=== PATIENT | male | born 1990 | race Two or more races ===

== ENCOUNTER 2023-06-26 07:49 | Inpatient (IN) | payer MEDICAID ==
[~2023-06-26] VITALS: Ht 175.3 cm; Wt 75.0 kg
[2023-06-26] MEDS ORDERED: ketorolac trometh. 30mg/ml inj. IV STA (08:03)
[2023-06-26] MEDS ORDERED: acetaminophen 325mg tablet PO STA (08:03)
[2023-06-26] MEDS ORDERED: morphine 2 MG/ML inj. syringe IV STA ×2 (08:03→08:27)
[2023-06-26] MEDS ORDERED: ondansetron/PF 4mg/2ml inj IV ONE (08:05)
[2023-06-26] MEDS ORDERED: normal saline 1000ml 1,000 ML IV ONE (08:05)
--- NOTE | 2023-06-26 08:14 | NUR ---
pt refused to allow tech to do EKG.
[2023-06-26] MEDS ORDERED: ketorolac tromethamine 15mg/ml inj. IV STA ×2 (08:28→08:31)
[2023-06-26] MEDS ORDERED: BUPIVAcaine 0.25% w/Epi /PF 30ml vial SQ STA (08:29)
[2023-06-26 08:40] LABS: BASOPHILS # (AUTO) 0.1 X10'3 (0-0.2); BASOPHILS % (AUTO) 0.6 % (0-1); EOSINOPHILS # (AUTO) 0.4 X10'3 (0-0.9); EOSINOPHILS % (AUTO) 2.2 % (0-6); HEMATOCRIT 38.7 % (42.0-52.0); HEMOGLOBIN 12.8 g/dl (14.0-17.9); LYMPHOCYTES # (AUTO) 1.8 X10'3 (1.1-4.8); LYMPHOCYTES % (AUTO) 10.9 % (21-51); MEAN CORPUSCULAR HEMOGLOBIN 29.9 PG (27.0-31.0); MEAN CORPUSCULAR VOLUME 90.4 FL (78-98); MEAN PLATELET VOLUME 6.5 FL (7.4-10.4); MONOCYTES # (AUTO) 1.5 X10'3 (0-0.9); MONOCYTES % (AUTO) 9.5 % (2-12); NEUTROPHILS # (AUTO) 12.6 X10'3 (1.8-7.7); NEUTROPHILS % (AUTO) 76.8 % (42-75); PLATELET COUNT 390 X10'3 (140-440); RED BLOOD COUNT 4.28 X10'6 (4.70-6.10); RED CELL DISTRIBUTION WIDTH 13.3 % (11.5-14.5); WHITE BLOOD COUNT 16.4 X10'3 (4.5-11.0)
[2023-06-26] MEDS ORDERED: piperacillin/tazo 3.375gm/50ml 50 ML IV ONE (08:55)
[2023-06-26] MEDS ORDERED: vancomycin 1,750 MG in NS 350ml IV soln IV ONE (09:00)
[2023-06-26] MEDS ORDERED: BUPIVAcaine 0.5% W/EPI /PF 10ml vial IJ STA (09:01)
[2023-06-26 09:07] LABS: ALANINE AMINOTRANSFERASE 34 U/L (12-78); ALBUMIN 2.7 G/DL (3.4-5.0); ALBUMIN/GLOBULIN RATIO 0.6 (1.1-1.5); ALKALINE PHOSPHATASE 84 IU/L (46-116); ANION GAP 6 (8-16); ASPARTATE AMINO TRANSFERASE 19 U/L (10-37); BILIRUBIN,TOTAL 0.5 MG/DL (0.1-1.0); BLOOD UREA NITROGEN 7 MG/DL (7-18); BUN/CREATININE RATIO 7.5 (10.0-20.0); CALCIUM 8.4 MG/DL (8.5-10.1); CHLORIDE 100 MMOL/L (99-107); CREATININE 0.93 MG/DL (0.60-1.10); GLUCOSE 114 MG/DL (70-104); MAGNESIUM 1.9 MG/DL (1.5-2.4); POTASSIUM 3.7 MMOL/L (3.5-5.1); SODIUM 135 MMOL/L (135-145); TOTAL PROTEIN 7.5 G/DL (6.4-8.2); eCRCL 113 ML/MIN; eGFR > 90 ML/MIN
--- NOTE | 2023-06-26 09:13 | NUR ---
attempt ekg a second time, pt still refusing at this time.
[2023-06-26] MEDS ORDERED: ondansetron/PF 4mg/2ml inj IV PRN ×2 (10:00→16:40)
[2023-06-26] MEDS ORDERED: potassium Cl 20 mEq SR tablet PO PRN ×2 (10:00)
[2023-06-26] MEDS ORDERED: magnesium hydroxide 30ml (MOM) UD suspension PO PRN (10:00)
[2023-06-26] MEDS: dextrose 5%-1/2 normal saline 1,000 ML IV SCH ×2 (10:00→20:14)
[2023-06-26] MEDS ORDERED: morphine 2 MG/ML inj. syringe IV PRN (10:00)
[2023-06-26] MEDS ORDERED: magnesium 4gm in 100ml NS 100 ML IV PRN (10:00)
[2023-06-26] MEDS ORDERED: acetaminophen 325mg tablet PO PRN (10:00)
[2023-06-26] MEDS ORDERED: mag hydrox/Alum hydrox/simeth 30ml oral suspension PO PRN (10:00)
[2023-06-26] MEDS ORDERED: magnesium 2GM in 50ml NS 50 ML IV PRN (10:00)
[2023-06-26] MEDS ORDERED: magnesium Cl slow-release 64mg tablet PO PRN (10:00)
[2023-06-26] MEDS ORDERED: potassium Cl 40MEQ/1/2NS 520ml 520 ML IV PRN (10:00)
[2023-06-26 10:48] LABS: MAGNESIUM 1.9 MG/DL (1.5-2.4); POTASSIUM 3.6 MMOL/L (3.5-5.1)
[2023-06-26] MEDS ORDERED: normal saline 1000ml 1,000 ML IV SCH ×2 (10:50→10:55)
--- NOTE | 2023-06-26 14:56 | NUR ---
SECURITY CALLED 3 TIMES TODAY FOR OUTAYLOR. TIME NOW 5432
--- NOTE | 2023-06-26 15:22 | NUR ---
SECURITY CALLED AGAIN FOR OUTBURST AND CURSING STAFF AT 1515
[2023-06-26] MEDS ORDERED: normal saline 500ml IV soln 1,000 ML IV ONE (15:25)
[2023-06-26] MEDS: HYDROcodone/acetaminophen 5mg/325mg tablet PO PRN (15:40)
--- NOTE | 2023-06-26 16:25 | NUR ---
SECURITY CALLED UBALDO FOR OUTBURST CURSING AT 0282
[2023-06-26] MEDS ORDERED: loperamide 2mg capsule PO PRN (16:40)
[2023-06-26] MEDS ORDERED: diphenhydrAMINE 25mg capsule PO PRN (16:40)
[2023-06-26] MEDS ORDERED: LORazepam 2 mg/ml vial IV PRN (16:40)
[2023-06-26] MEDS ORDERED: naloxone 0.4 mg/ml inj IV PRN (16:40)
[2023-06-26] MEDS ORDERED: traZODone 50mg tablet PO ONE ×2 (16:50→17:50)
[2023-06-26 19:00] VITALS: BP 98/53; PULSE 87; RESP 18; TEMP 98.7; O2SAT 100
[2023-06-26 20:00] VITALS: RESP 18; O2SAT 100
[2023-06-26] MEDS ORDERED: VANCOMYCIN 1,500MG inj. 1,500 MG in normal saline 500ml IV soln 300 ML IV SCH (20:00)
[2023-06-26] MEDS: K and/or MAG REPLACEMENT MC SCH (20:00)
[2023-06-26] MEDS: docusate sod 100mg capsule PO SCH (20:14)
[2023-06-26] MEDS: traZODone 50mg tablet PO SCH (20:14)
[2023-06-26] MEDS: morphine 2 MG/ML inj. syringe IV PRN (20:43)
[2023-06-26 22:00] VITALS: BP 93/51; PULSE 96; RESP 18; TEMP 99.4; O2SAT 100
[2023-06-26] MEDS: VANCOmycin 1250MG/NS 250ml Bag 250 ML IV SCH (22:44)
[2023-06-27] VITALS (19 sets, daily range): BP systolic 85–108; BP diastolic 44–70; PULSE 65–105; RESP 12–18; TEMP 97.2–101.3; O2SAT 95–99
[2023-06-27] MEDS: dextrose 5%-1/2 normal saline 1,000 ML IV SCH ×3 (02:07→17:15)
[2023-06-27 05:29] LABS: ALANINE AMINOTRANSFERASE 37 U/L (12-78); ALBUMIN 2.2 G/DL (3.4-5.0); ALKALINE PHOSPHATASE 66 IU/L (46-116); ANION GAP 5 (8-16); ASPARTATE AMINO TRANSFERASE 31 U/L (10-37); BILIRUBIN,TOTAL 0.3 MG/DL (0.1-1.0); BLOOD UREA NITROGEN 7 MG/DL (7-18); BUN/CREATININE RATIO 8.4 (10.0-20.0); CALCIUM 8.1 MG/DL (8.5-10.1); CHLORIDE 103 MMOL/L (99-107); CREATININE 0.83 MG/DL (0.60-1.10); MAGNESIUM 1.9 MG/DL (1.5-2.4); POTASSIUM 3.8 MMOL/L (3.5-5.1); SODIUM 136 MMOL/L (135-145); TOTAL CARBON DIOXIDE 28.3 MMOL/L (24-32); eCRCL 127 ML/MIN; eGFR > 90 ML/MIN
[2023-06-27 05:30] LABS: BASOPHILS # (AUTO) 0.1 X10'3 (0-0.2); BASOPHILS % (AUTO) 0.4 % (0-1); EOSINOPHILS # (AUTO) 0.5 X10'3 (0-0.9); EOSINOPHILS % (AUTO) 3.1 % (0-6); HEMATOCRIT 35.1 % (42.0-52.0); HEMOGLOBIN 11.5 g/dl (14.0-17.9); LYMPHOCYTES # (AUTO) 1.9 X10'3 (1.1-4.8); LYMPHOCYTES % (AUTO) 12.8 % (21-51); MEAN CORPUSCULAR HEMOGLOBIN 29.6 PG (27.0-31.0); MEAN CORPUSCULAR HGB CONC 32.7 g/dL (33.0-36.5); MEAN CORPUSCULAR VOLUME 90.5 FL (78-98); MONOCYTES # (AUTO) 1.7 X10'3 (0-0.9); NEUTROPHILS % (AUTO) 72.7 % (42-75); PLATELET COUNT 370 X10'3 (140-440); RED BLOOD COUNT 3.88 X10'6 (4.70-6.10); RED CELL DISTRIBUTION WIDTH 13.2 % (11.5-14.5); WHITE BLOOD COUNT 15.1 X10'3 (4.5-11.0)
[2023-06-27 05:31] LABS: ALBUMIN/GLOBULIN RATIO 0.5 (1.1-1.5); GLUCOSE 108 MG/DL (70-104); TOTAL PROTEIN 6.6 G/DL (6.4-8.2)
[2023-06-27] MEDS: morphine 2 MG/ML inj. syringe IV PRN (05:46)
[2023-06-27] MEDS: K and/or MAG REPLACEMENT MC SCH ×2 (08:00→20:00)
[2023-06-27] MEDS: enoxaparin 40mg/0.4ml syringe SUBCUT SCH (08:00)
[2023-06-27] MEDS: docusate sod 100mg capsule PO SCH ×2 (08:00→20:02)
--- NOTE | 2023-06-27 10:02 | NUR ---
Page sent to echo at this time. [id number] Patient going to surgery this morning and surg charge would like the active echo to be stat. Thanks
[2023-06-27] MEDS: VANCOmycin 1250MG/NS 250ml Bag 250 ML IV SCH ×2 (10:10→23:02)
--- NOTE | 2023-06-27 10:41 | NUR ---
Initial: Pt admit DX sepsis, polysubstance abuse, and pilonidal abscess needing drainage going to surgery this AM pending WOC assessment post-op per EMR. Pt PO 100% first regular diet meal receiving D5/half NS at 100ml/hr providing 408 kcals/day. LBM 06/25 per EMR. Will monitor for PO trends and further nutrition intervention needs post-op. Rec: 1. continue regular diet; encourage PO 2. monitor WOC/surgery notes for ONS needs 3. bowel care per rx 4. scaled wt this admit; subsequent weekly wt Addendum: 06/27/23 at [address] Amended: Links added.
[2023-06-27 11:15] LABS: PROTHROMBIN TIME 10.6 SECONDS (9.0-12.0)
--- NOTE | 2023-06-27 14:03 | NUR ---
Report given to RN: Ozzie in Recovery.
--- NOTE | 2023-06-27 14:18 | NUR ---
PAGER ID: [phone] MESSAGE: Marck Grimaldo Re: [phone] and [id number]. Both patients no cardiac history and have been in sinus rhythm. Do we need to continue them on telemetry monitoring? Thanks [phone]
[2023-06-27] MEDS ORDERED: sevoflurane 250ml liquid IH ONE (14:44)
[2023-06-27] MEDS ORDERED: LIDOcaine 2% (20mg/ml) 5ml vial ONE (14:44)
[2023-06-27] MEDS ORDERED: fentaNYL/PF 50MCG/1 ML 2ML syringe ONE (14:48)
[2023-06-27] MEDS: normal saline 1000ml 1,000 ML IV SCH (14:50)
[2023-06-27] MEDS ORDERED: midazolam 1 mg/ML 2ml injection ONE (14:52)
[2023-06-27] MEDS ORDERED: ceFAZolin 1000mg inj ONE ×2 (15:12)
[2023-06-27] MEDS ORDERED: dexamethasone sod phosphate 4mg/ml inj. ONE (15:12)
[2023-06-27] MEDS ORDERED: rocuronium 10mg/ml inj IV ONE (15:12)
[2023-06-27] MEDS ORDERED: propofol inj 20 ML IV ONE ×2 (15:12)
[2023-06-27] MEDS ORDERED: ondansetron/PF 4mg/2ml inj ONE (15:12)
[2023-06-27] MEDS ORDERED: morphine 2 MG/ML inj. syringe IV PRN (15:30)
[2023-06-27] MEDS ORDERED: acetaminophen 1,000mg/100ml IV 100 ML IV PRN (15:30)
[2023-06-27] MEDS ORDERED: ketorolac trometh. 30mg/ml inj. IV ONE (15:30)
[2023-06-27] MEDS ORDERED: meperidine/PF 25mg/ml syringe IV PRN (15:30)
[2023-06-27] MEDS ORDERED: ondansetron/PF 4mg/2ml inj IV PRN (15:30)
[2023-06-27] MEDS ORDERED: HYDROmorphone/PF 0.2 MG/ML SYRINGE IV PRN ×2 (15:30)
[2023-06-27] MEDS ORDERED: hydrALAZINE 20mg/ml inj. IV PRN (15:30)
[2023-06-27] MEDS ORDERED: ringers solution, lacted 1,000 ML IV SCH (15:30)
[2023-06-27] MEDS ORDERED: proCHLORperazine 10 MG/2 ml inj IV PRN (15:30)
[2023-06-27] MEDS ORDERED: labetalol 20mg/4ml (5mg/ml) syringe IV PRN (15:30)
[2023-06-27] MEDS ORDERED: morphine 4 MG/ML inj SYRINge IV PRN (15:30)
--- NOTE | 2023-06-27 15:31 | NUR ---
Received from OR via SURGICAL BED , accompanied by Anesthesiologist DELILAH and report given by Anesthesiolgist. PATIENT WITH 20G PIV IN RIGHT UE RUNNING LR AT 100. PATIENT WITH VSS AT THIS TIME. PATIENT WITH UNDERWEAR, KERLIX AND ABD TO BUTTOCK AREA THAT IS CDI. Addendum: 06/27/23 at 1537 by Dwayne Saucedo RN, RN Amended: Links added.
--- NOTE | 2023-06-27 15:53 | NUR ---
Patient in room ORTHO 4022. I have received report from Dwayne MYERS, Recovery and had the opportunity to ask questions and assume patient care.
[2023-06-27] MEDS: HYDROcodone/acetaminophen 5mg/325mg tablet PO PRN (16:26)
--- NOTE | 2023-06-27 16:29 | NUR ---
Report called to receiving nurse. Transferred via BED Belongings IN PT ROOM, WITH THE EXCEPTION OF 3 RINGS THAT WERE REMOVED IN THE OR. THEY ARE IN A ZIPLOCK BAG INSIDE THE PT CHART. VSS, TOLERATING PO FLUIDS WELL. PT ATE AN APPLESAUCE, WAS GIVEN 2 NORCO 5/325 AND IV TORADOL FOR B HIP PAIN 04/22. TRANSFERRED TO [facility] IN STABLE CONDITION. COCCYX DSG CDI AT TIME OF TRANSFER. Special Issues communicated to receiving nurse.
[2023-06-27] MEDS: piperacillin/tazo 3.375gm/50ml 50 ML IV SCH (17:15)
--- NOTE | 2023-06-27 17:42 | NUR ---
Student documentation: I have reviewed all interventions, assessments performed and documented by Luis Eduardo MYERS. Student Medication Administration: For this medication-pass time frame, all medication were reviewed, dispensed, administered and documented per hospital policy by Luis Eduardo MYERS.
--- NOTE | 2023-06-27 18:29 | NUR ---
Problems reprioritized. Patient report given, questions answered & plan of care reviewed with Rubin MYERS.
[2023-06-27] MEDS: traZODone 50mg tablet PO SCH (20:02)
[2023-06-27] MEDS ORDERED: VANCOMYCIN LEVEL IV ONE (21:30)
[2023-06-28] MEDS: piperacillin/tazo 3.375gm/50ml 50 ML IV SCH ×3 (01:03→19:35)
[2023-06-28 02:00] VITALS: BP 124/72; PULSE 68; RESP 16; TEMP 98.2; O2SAT 98
[2023-06-28 06:00] VITALS: BP 122/55; PULSE 65; RESP 16; TEMP 98.3; O2SAT 100
[2023-06-28 06:04] LABS: BASOPHILS # (AUTO) 0.1 X10'3 (0-0.2); BASOPHILS % (AUTO) 0.3 % (0-1); EOSINOPHILS % (AUTO) 0 % (0-6); HEMATOCRIT 34.3 % (42.0-52.0); HEMOGLOBIN 11.2 g/dl (14.0-17.9); LYMPHOCYTES # (AUTO) 1.3 X10'3 (1.1-4.8); LYMPHOCYTES % (AUTO) 8.1 % (21-51); MEAN CORPUSCULAR HEMOGLOBIN 29.8 PG (27.0-31.0); MEAN CORPUSCULAR HGB CONC 32.7 g/dL (33.0-36.5); MEAN CORPUSCULAR VOLUME 90.9 FL (78-98); MEAN PLATELET VOLUME 6.8 FL (7.4-10.4); MONOCYTES # (AUTO) 1.3 X10'3 (0-0.9); MONOCYTES % (AUTO) 7.8 % (2-12); NEUTROPHILS # (AUTO) 13.9 X10'3 (1.8-7.7); NEUTROPHILS % (AUTO) 83.8 % (42-75); PLATELET COUNT 410 X10'3 (140-440); RED BLOOD COUNT 3.77 X10'6 (4.70-6.10); RED CELL DISTRIBUTION WIDTH 12.9 % (11.5-14.5); WHITE BLOOD COUNT 16.6 X10'3 (4.5-11.0)
--- NOTE | 2023-06-28 06:10 | NUR ---
Patient in room ORTHO 4022. I have received report from Rubin BUNDY and had the opportunity to ask questions and assume patient care.
[2023-06-28 07:10] LABS: ALANINE AMINOTRANSFERASE 42 U/L (12-78); ALBUMIN/GLOBULIN RATIO 0.4 (1.1-1.5); ALKALINE PHOSPHATASE 65 IU/L (46-116); ANION GAP 7 (8-16); ASPARTATE AMINO TRANSFERASE 33 U/L (10-37); BILIRUBIN,TOTAL 0.1 MG/DL (0.1-1.0); BLOOD UREA NITROGEN 12 MG/DL (7-18); BUN/CREATININE RATIO 15.2 (10.0-20.0); CALCIUM 8.5 MG/DL (8.5-10.1); CHLORIDE 105 MMOL/L (99-107); CREATININE 0.79 MG/DL (0.60-1.10); GLUCOSE 130 MG/DL (70-104); POTASSIUM 4.3 MMOL/L (3.5-5.1); SODIUM 140 MMOL/L (135-145); TOTAL CARBON DIOXIDE 28.1 MMOL/L (24-32); TOTAL PROTEIN 6.7 G/DL (6.4-8.2); eCRCL 133 ML/MIN; eGFR > 90 ML/MIN
[2023-06-28] MEDS: docusate sod 100mg capsule PO SCH ×2 (07:57→20:00)
[2023-06-28] MEDS: enoxaparin 40mg/0.4ml syringe SUBCUT SCH (07:59)
[2023-06-28 08:00] VITALS: RESP 16; O2SAT 100
[2023-06-28] MEDS: K and/or MAG REPLACEMENT MC SCH ×2 (08:00→20:00)
--- NOTE | 2023-06-28 09:45 | NUR ---
Patient mom Halle called to check on patient. After getting approval from patient to talk to mom, I was able to provide an update to her. Halel stated that he lives with her in [place], [place] and don't know why he decided to move all the way here. She has been trying to get an address for him so she can pick him up or visit. However, I she has been unsuccessful. She is willing to rent a car and drive up here to get him. She is wanting to know if he will be dc today. Unfortunately, I don't know at this time but will follow up within a couple hours, once the doctor have rounded.
[2023-06-28 10:00] VITALS: BP 99/60; PULSE 68; RESP 14; TEMP 99.1; O2SAT 96
[2023-06-28] MEDS: morphine 2 MG/ML inj. syringe IV PRN (10:16)
--- NOTE | 2023-06-28 10:30 | NUR ---
Pt refused a second IV for Vancomycin IV admin. (Zosyn and Vanco not compatible)
[2023-06-28] MEDS: dextrose 5%-1/2 normal saline 1,000 ML IV SCH (12:00)
--- NOTE | 2023-06-28 12:06 | NUR ---
Again attempted to start a second IV for admin of Vancomycin d/t Zosyn and Vanco is not Y-port compatible. Pt was educated regarding rational for the second IV. Pt refuses another IV start.
[2023-06-28] MEDS: vancomycin/NS 1 GM ADD-VANTAGE 250 ML IV SCH ×2 (14:18→21:46)
[2023-06-28] MEDS: normal saline 1000ml 1,000 ML IV SCH (14:25)
--- NOTE | 2023-06-28 14:29 | NUR ---
NS 1000 bag was administered without scanning due to scanner not working.
--- NOTE | 2023-06-28 15:51 | NUR ---
Patient mom Halle is driving down from [place], [place] to pick him up. Patient is unaware and mom would like to keep it that. Eri social science teacher spoke with mom. Eri states that the mom will sleep in her car while she waits for patient to be discharged tomorrow.
--- NOTE | 2023-06-28 16:00 | NUR ---
PRESSURE ULCER EDUCATION: DEFINITION: A pressure ulcer is an area of skin that breaks down when you stay in one position too long. The constant pressure against the skin reduces the blood flow to that area and the affected tissue dies. CAUSES: "Being bedridden or in a wheelchair "Fragile skin "Having a chronic condition, such as diabetes or vascular disease "Inability to move certain parts of your body without assistance "Older age "Incontinence of urine or stool SYMPTOMS: "A reddened area that DOES NOT turn white when pressed on - this can be the beginning of a pressure ulcer "A blister, deep sore or a crater - these can be advanced pressure ulcers FIRST AID: "Relieve the pressure on this area "Keep the area clean and dry "Call your primary doctor if you see any of the above symptoms "DO NOT massage the area "DO NOT use a donut shaped or ring shaped pillow- these actually interfere with the blood flow and cause complications PREVENTION: "Check for pressure ulcers everyday "Change position at least every two hours to relieve pressure "Use items that help relieve pressure- pillows, sheepskin, foam padding, and powders. "Keep skin clean and dry "Eat healthy well balanced meals "Exercise daily IF YOU SEE ANY OF THESE SYMPTOMS WHILE IN THE HOSPITAL - TELL YOUR NURSE IMMEDIATELY. IF YOU SEE ANY OF THESE SYMPTOMS WHILE AT HOME OR HAVE ANY QUESTIONS OR CONCERNS ABOUT PRESSURE ULCERS - CALL YOUR PRIMARY DOCTOR IMMEDIATELY. Addendum: 06/28/23 at 1600 by Talia Ray LVN Amended: Links added.
[2023-06-28] MEDS ORDERED: UNABLE TO OBTAIN (16:01)
[2023-06-28 18:00] VITALS: BP 102/54; PULSE 75; RESP 14; TEMP 98.5; O2SAT 99
--- NOTE | 2023-06-28 18:00 | NUR ---
I have reviewed and agree with interventions, assessments, and documentation by Angela Woodard LVN.
--- NOTE | 2023-06-28 18:31 | NUR ---
Problems reprioritized. Patient report given, questions answered & plan of care reviewed with Jaelyn MYERS.
[2023-06-28] MEDS: traZODone 50mg tablet PO SCH (21:46)
[2023-06-28 22:00] VITALS: BP 112/57; PULSE 81; RESP 16; TEMP 97.9; O2SAT 100
[2023-06-29] MEDS: vancomycin/NS 1 GM ADD-VANTAGE 250 ML IV SCH ×2 (01:00→11:53)
[2023-06-29] MEDS: piperacillin/tazo 3.375gm/50ml 50 ML IV SCH ×3 (01:51→16:04)
[2023-06-29] MEDS: normal saline 1000ml 1,000 ML IV SCH ×2 (02:27→12:02)
[2023-06-29 06:00] VITALS: BP 113/54; PULSE 82; RESP 16; TEMP 99.3; O2SAT 94
[2023-06-29 06:13] LABS: BASOPHILS # (AUTO) 0.1 X10'3 (0-0.2); BASOPHILS % (AUTO) 0.6 % (0-1); EOSINOPHILS # (AUTO) 0.3 X10'3 (0-0.9); HEMATOCRIT 32.9 % (42.0-52.0); HEMOGLOBIN 10.8 g/dl (14.0-17.9); LYMPHOCYTES # (AUTO) 3.4 X10'3 (1.1-4.8); LYMPHOCYTES % (AUTO) 22.2 % (21-51); MEAN CORPUSCULAR HEMOGLOBIN 29.5 PG (27.0-31.0); MEAN CORPUSCULAR HGB CONC 32.7 g/dL (33.0-36.5); MEAN PLATELET VOLUME 6.6 FL (7.4-10.4); MONOCYTES # (AUTO) 1.7 X10'3 (0-0.9); MONOCYTES % (AUTO) 11.3 % (2-12); NEUTROPHILS # (AUTO) 9.8 X10'3 (1.8-7.7); NEUTROPHILS % (AUTO) 63.9 % (42-75); PLATELET COUNT 430 X10'3 (140-440); RED BLOOD COUNT 3.66 X10'6 (4.70-6.10); RED CELL DISTRIBUTION WIDTH 13.1 % (11.5-14.5); WHITE BLOOD COUNT 15.3 X10'3 (4.5-11.0)
[2023-06-29 06:38] LABS: ALANINE AMINOTRANSFERASE 43 U/L (12-78); ALBUMIN 1.9 G/DL (3.4-5.0); ALBUMIN/GLOBULIN RATIO 0.5 (1.1-1.5); ALKALINE PHOSPHATASE 59 IU/L (46-116); ANION GAP 8 (8-16); ASPARTATE AMINO TRANSFERASE 28 U/L (10-37); BILIRUBIN,TOTAL 0.2 MG/DL (0.1-1.0); BLOOD UREA NITROGEN 12 MG/DL (7-18); BUN/CREATININE RATIO 12.5 (10.0-20.0); CHLORIDE 106 MMOL/L (99-107); CREATININE 0.96 MG/DL (0.60-1.10); GLUCOSE 98 MG/DL (70-104); MAGNESIUM 1.8 MG/DL (1.5-2.4); POTASSIUM 4.1 MMOL/L (3.5-5.1); SODIUM 141 MMOL/L (135-145); TOTAL CARBON DIOXIDE 27.1 MMOL/L (24-32); TOTAL PROTEIN 6.1 G/DL (6.4-8.2); eCRCL 109 ML/MIN; eGFR 90 ML/MIN
--- NOTE | 2023-06-29 07:03 | NUR ---
Patient in room ORTHO 4022. I have received report from Jaelyn RN and had the opportunity to ask questions and assume patient care.
[2023-06-29 08:00] VITALS: RESP 16; O2SAT 94
[2023-06-29] MEDS: enoxaparin 40mg/0.4ml syringe SUBCUT SCH ×2 (08:00→08:38)
[2023-06-29] MEDS: docusate sod 100mg capsule PO SCH ×2 (08:00→20:00)
[2023-06-29] MEDS: K and/or MAG REPLACEMENT MC SCH ×2 (08:00→20:00)
[2023-06-29] MEDS ORDERED: VANCOMYCIN LEVEL IV ONE (08:30)
[2023-06-29 10:00] VITALS: BP 112/67; PULSE 89; RESP 14; TEMP 97.8; O2SAT 98
--- NOTE | 2023-06-29 10:21 | NUR ---
Patient mom called and wanted an update. She advised me that she is unable to come up here due to car issues. She is unable to find a small rental car that is cheap on gas. I transferred call to patient
--- NOTE | 2023-06-29 11:21 | NUR ---
F/u 06/29: Pt post-op day 2 s/p excision of pilonidal abscess per EMR. Per WOC, excision site and scabs otherwise skin intact. Pt PO 100% avg regular diet meeting estimated needs. LBM 06/28 per EMR. No nutrition interventions at this time. Will continue to follow. Rec: 1. continue regular diet; encourage PO 2. bowel care per rx 3. scaled wt this admit; subsequent weekly wt Addendum: 06/29/23 at [address] Amended: Links added.
[2023-06-29] MEDS: linezolid 600mg tablet PO SCH ×2 (12:05→20:15)
--- NOTE | 2023-06-29 12:14 | NUR ---
Received order for consult. Tried to meet with patient in regards to substance use and patient is with wound care. I will try again.
[2023-06-29 16:57] LABS: URINE AMPHETAMINE SCREEN NEGATIVE (Neg); URINE BARBITUATE SCREEN NEGATIVE (Neg); URINE BENZODIAZEPINES SCREEN NEGATIVE (Neg); URINE CANNABINOID SCREEN NEGATIVE (Neg); URINE COCAINE SCREEN NEGATIVE (Neg); URINE OPIATE SCREEN NEGATIVE (Neg); URINE PHENCYCLIDINE SCREEN NEGATIVE (Neg)
--- NOTE | 2023-06-29 17:00 | NUR ---
I have reviewed and agree with interventions, assessments, and documentation by Angela Woodard LVN.
[2023-06-29 18:00] VITALS: BP 113/68; PULSE 70; RESP 14; TEMP 98.5; O2SAT 96
--- NOTE | 2023-06-29 18:00 | NUR ---
I have reviewed and agree with interventions, assessments, and documentation by Angela Woodard LVN.
--- NOTE | 2023-06-29 18:16 | NUR ---
Problems reprioritized. Patient report given, questions answered & plan of care reviewed with Jaelyn MYERS.
--- NOTE | 2023-06-29 18:18 | NUR ---
Patient refused this medications this AM and PO antibiotics. Patient states that he is tired
[2023-06-29] MEDS: traZODone 50mg tablet PO SCH (20:15)
[2023-06-29 22:00] VITALS: BP 95/47; PULSE 70; RESP 18; TEMP 98.7; O2SAT 98
[2023-06-30] VITALS (7 sets, daily range): BP systolic 96–100; BP diastolic 44–54; PULSE 66–69; RESP 14–18; TEMP 97.6–98.7; O2SAT 97–99
[2023-06-30] MEDS: piperacillin/tazo 3.375gm/50ml 50 ML IV SCH ×2 (00:44→08:25)
[2023-06-30] MEDS: normal saline 1000ml 1,000 ML IV SCH ×2 (05:07→20:25)
--- NOTE | 2023-06-30 06:00 | NUR ---
Patient in room ORTHO 4022. I have received report from Jaelyn RN and had the opportunity to ask questions and assume patient care.
[2023-06-30 07:35] LABS: BASOPHILS # (AUTO) 0.1 X10'3 (0-0.2); BASOPHILS % (AUTO) 1.1 % (0-1); EOSINOPHILS # (AUTO) 0.5 X10'3 (0-0.9); EOSINOPHILS % (AUTO) 4.5 % (0-6); HEMATOCRIT 35.9 % (42.0-52.0); HEMOGLOBIN 11.8 g/dl (14.0-17.9); LYMPHOCYTES # (AUTO) 2.9 X10'3 (1.1-4.8); LYMPHOCYTES % (AUTO) 25.9 % (21-51); MEAN CORPUSCULAR HEMOGLOBIN 29.7 PG (27.0-31.0); MEAN CORPUSCULAR HGB CONC 32.9 g/dL (33.0-36.5); MEAN CORPUSCULAR VOLUME 90.4 FL (78-98); MONOCYTES # (AUTO) 1.3 X10'3 (0-0.9); NEUTROPHILS # (AUTO) 6.3 X10'3 (1.8-7.7); NEUTROPHILS % (AUTO) 56.5 % (42-75); PLATELET COUNT 460 X10'3 (140-440); RED BLOOD COUNT 3.97 X10'6 (4.70-6.10); RED CELL DISTRIBUTION WIDTH 13.1 % (11.5-14.5); WHITE BLOOD COUNT 11.2 X10'3 (4.5-11.0)
[2023-06-30 07:57] LABS: ALANINE AMINOTRANSFERASE 65 U/L (12-78); ALBUMIN 2.1 G/DL (3.4-5.0); ALBUMIN/GLOBULIN RATIO 0.5 (1.1-1.5); ALKALINE PHOSPHATASE 69 IU/L (46-116); ANION GAP 5 (8-16); ASPARTATE AMINO TRANSFERASE 29 U/L (10-37); BILIRUBIN,TOTAL 0.1 MG/DL (0.1-1.0); BLOOD UREA NITROGEN 12 MG/DL (7-18); BUN/CREATININE RATIO 13.5 (10.0-20.0); CALCIUM 8.8 MG/DL (8.5-10.1); CHLORIDE 106 MMOL/L (99-107); CREATININE 0.89 MG/DL (0.60-1.10); GLUCOSE 94 MG/DL (70-104); MAGNESIUM 2.1 MG/DL (1.5-2.4); POTASSIUM 3.8 MMOL/L (3.5-5.1); SODIUM 140 MMOL/L (135-145); TOTAL CARBON DIOXIDE 28.7 MMOL/L (24-32); TOTAL PROTEIN 6.7 G/DL (6.4-8.2); eCRCL 118 ML/MIN; eGFR > 90 ML/MIN
[2023-06-30] MEDS: enoxaparin 40mg/0.4ml syringe SUBCUT SCH (08:00)
[2023-06-30] MEDS: K and/or MAG REPLACEMENT MC SCH ×2 (08:00→20:00)
[2023-06-30] MEDS: linezolid 600mg tablet PO SCH ×2 (08:05→20:24)
[2023-06-30] MEDS: docusate sod 100mg capsule PO SCH ×2 (08:06→20:22)
[2023-06-30] MEDS ORDERED: normal saline 500ml IV soln 500 ML IV ONE (09:55)
--- NOTE | 2023-06-30 11:04 | NUR ---
[place] consult: Pt seen at bedside for written/verbal low tyramine nutrition education. Left handouts at bedside with RD contact information and encouraged pt to reach out for any nutrition questions or concerns. Addendum: 06/30/23 at [address] Amended: Links added.
[2023-06-30] MEDS: HYDROcodone/acetaminophen 5mg/325mg tablet PO PRN ×2 (14:35→20:24)
[2023-06-30 16:17] LABS: HIV ANTIBODY 1&2 RAPID NON-REACTIVE (Neg)
--- NOTE | 2023-06-30 18:00 | NUR ---
I have reviewed and agree with interventions, assessments, and documentation by Angela oWodard LVN.
--- NOTE | 2023-06-30 18:41 | NUR ---
upon discharge patient will be getting PO Zyvox 600mg BID x2 weeks ( hospital will supply) and outpatient wound care. CM is working on wound care in the [place] area since patient will be discharging to his moms house. Patient mom is on her way from [place], [place] to tack picker patient.
--- NOTE | 2023-06-30 20:15 | NUR ---
Agree with Oscar Melissa LVN except for what I charted.
--- NOTE | 2023-06-30 22:33 | NUR ---
Patient IV is no longer working. Patient is more awake and drinking fluids. Per Dr. Rutherford okay to keep IV out. orders in chart
--- NOTE | 2023-06-30 22:39 | NUR ---
IV removed per MD order
--- NOTE | 2023-06-30 23:20 | NUR ---
Student documentation: I have reviewed interventions, assessments performed and documented by Goyo Glass [facility].
--- NOTE | 2023-06-30 23:50 | NUR ---
Problems reprioritized. Patient report given, questions answered & plan of care reviewed with Ruth MYERS.
[2023-07-01 06:27] LABS: ALANINE AMINOTRANSFERASE 65 U/L (12-78); ALBUMIN 2.1 G/DL (3.4-5.0); ALBUMIN/GLOBULIN RATIO 0.5 (1.1-1.5); ALKALINE PHOSPHATASE 65 IU/L (46-116); ANION GAP 5 (8-16); ASPARTATE AMINO TRANSFERASE 27 U/L (10-37); BILIRUBIN,TOTAL 0.1 MG/DL (0.1-1.0); BLOOD UREA NITROGEN 15 MG/DL (7-18); BUN/CREATININE RATIO 17.2 (10.0-20.0); CALCIUM 8.5 MG/DL (8.5-10.1); CHLORIDE 106 MMOL/L (99-107); CREATININE 0.87 MG/DL (0.60-1.10); GLUCOSE 92 MG/DL (70-104); POTASSIUM 4.1 MMOL/L (3.5-5.1); SODIUM 140 MMOL/L (135-145); TOTAL CARBON DIOXIDE 28.7 MMOL/L (24-32); TOTAL PROTEIN 6.6 G/DL (6.4-8.2); eCRCL 121 ML/MIN; eGFR > 90 ML/MIN
--- NOTE | 2023-07-01 06:47 | NUR ---
Report to Terry MYERS.
--- NOTE | 2023-07-01 06:50 | NUR ---
Patient in room ORTHO 4022. I have received report from LUCIA iMranda and had the opportunity to ask questions and assume patient care.
[2023-07-01 06:51] VITALS: BP 106/49; PULSE 61; RESP 14; TEMP 98.7; O2SAT 97
[2023-07-01 07:00] VITALS: RESP 14; O2SAT 97
[2023-07-01] MEDS: normal saline 1000ml 1,000 ML IV SCH (07:47)
[2023-07-01] MEDS: K and/or MAG REPLACEMENT MC SCH (08:00)
[2023-07-01] MEDS: enoxaparin 40mg/0.4ml syringe SUBCUT SCH (08:00)
[2023-07-01] MEDS: docusate sod 100mg capsule PO SCH (08:45)
[2023-07-01] MEDS: linezolid 600mg tablet PO SCH (08:46)
--- NOTE | 2023-07-01 09:19 | NUR ---
Reassessment: Pt continues eating well on regular diet, documented with 100% PO intake of meals meeting estimated nutrient needs. D/w dietary to send double protein with meals for satiety. LBM 06/30 per EMR. Will continue to follow and monitor need for further nutrition intervention. Recommendations: 1. Continue regular diet 2. Double eggs WB, double meat BIDLD for satiety 3. Bowel care per rx 4. Scaled wt this admit; subsequent weekly scaled wts Addendum: 07/01/23 at [address] Amended: Links added.
[2023-07-01 10:00] LABS: BASOPHILS # (AUTO) 0.1 X10'3 (0-0.2); BASOPHILS % (AUTO) 1.1 % (0-1); EOSINOPHILS # (AUTO) 0.6 X10'3 (0-0.9); HEMATOCRIT 38.9 % (42.0-52.0); HEMOGLOBIN 12.9 g/dl (14.0-17.9); LYMPHOCYTES # (AUTO) 2.1 X10'3 (1.1-4.8); LYMPHOCYTES % (AUTO) 20.8 % (21-51); MEAN CORPUSCULAR HGB CONC 33.3 g/dL (33.0-36.5); MEAN CORPUSCULAR VOLUME 90.1 FL (78-98); MEAN PLATELET VOLUME 6.6 FL (7.4-10.4); MONOCYTES # (AUTO) 1.3 X10'3 (0-0.9); MONOCYTES % (AUTO) 12.7 % (2-12); NEUTROPHILS # (AUTO) 6.1 X10'3 (1.8-7.7); NEUTROPHILS % (AUTO) 59.4 % (42-75); PLATELET COUNT 458 X10'3 (140-440); RED BLOOD COUNT 4.32 X10'6 (4.70-6.10); WHITE BLOOD COUNT 10.3 X10'3 (4.5-11.0)
[2023-07-01 10:34] LABS: PLATELET ESTIMATE INCREASED; TOTAL CELLS COUNTED 100
[2023-07-01 10:55] VITALS: BP 96/47; PULSE 66; RESP 16; TEMP 97.1; O2SAT 99
[2023-07-01] MEDS: HYDROcodone/acetaminophen 5mg/325mg tablet PO PRN ×2 (11:45→17:25)
--- NOTE | 2023-07-01 12:00 | NUR ---
Patient's mother at bedside for wound care dressing change teaching. Patient's mother involved and verbalizes understanding of wound care dressing changes. Patient mother states she has had experience with wound care as she had helped with "someone else whose wound was much much bigger and it took a year to get better." Extra wound care supplies given to patient and patient's mother. And educated importance of follow up with wound care in [place] as instructed.
[2023-07-01] MEDS ORDERED: LINE600T14 PO (14:52)
--- NOTE | 2023-07-01 15:07 | NUR ---
PAGER ID: [phone] MESSAGE: [phone]- Bar Malagon- pt asking for pain meds for drive home and for wound care. Received [place] 2 tabs. at 1145 but is prn q6hr.- Terry [phone]
[2023-07-01] MEDS ORDERED: traZODone 50mg tablet PO PRN (16:40)
--- NOTE | 2023-07-01 17:20 | NUR ---
Patient alert and oriented in no apparent acute distress with mother and brother at bedside. Discussed with patient and family discharge instructions and new prescription. Mother already went to pharmacy to flower buncher or picker zyvox and has in room with patient. Patient and family verbalized understanding of teaching and all questions answered to best of this RN ability. Extra wound care supplies given to patient and family found wound care dressing changes. Patient aware of wound clinic appointment place and time and states he will be going.
[2023-07-01 17:25] VITALS: RESP 20
--- NOTE | 2023-07-01 18:09 | NUR ---
patient dc'd with family escorted out in wheelchair. as patient got into car he asked about his "rings and chains." No belongings safe slip was in patient's chart. Called down to admitting in ER and admitting stated "there's only two of us. we can't come right now to the floor." Let admitting know that patient is out in car in front lobby waiting for belongings. Admitting stated will try to get out there citlaly. Will call and notify patient's mother.
--- NOTE | 2023-07-01 18:12 | NUR ---
called to patient's mother david and left message.
[2023-07-02 14:55] LABS: HBSAG SCREEN Negative (Negative); HEP A AB, IGM Negative (Negative); HEP B CORE AB, IGM Negative (Negative); HEPATITIS C VIRUS ANTIBODY Non Reactive (Non Reactive)
== END 2023-07-01 17:49 | disposition home or self-care (01) | DRG 720 ==
LOC: ER 07:50 → ED HOLD 09:59 → EDBD 09:59 → EDBEDREQ 17:39 → ORTHO 4S 18:52
PROVIDERS: ADMIT Internal Medicine; ATTEND Internal Medicine
PROC: 0JB90ZZ Excision of Buttock Subcutaneous Tissue and Fascia, Open Approach (ICD-10-PCS; principal; 2023-06-27 14:44)
DX: A41.9 Sepsis, unspecified organism (principal); L02.212 Cutaneous abscess of back [any part, except buttock and flank]; F19.10 Other psychoactive substance abuse, uncomplicated; I08.1 Rheumatic disorders of both mitral and tricuspid valves; B95.62 Methicillin resistant Staphylococcus aureus infection as the cause of diseases classified elsewhere; L05.01 Pilonidal cyst with abscess; L76.22 Postprocedural hemorrhage of skin and subcutaneous tissue following other procedure; Y83.8 Other surgical procedures as the cause of abnormal reaction of the patient, or of later complication, without mention of misadventure at the time of the procedure; Y92.238 Other place in hospital as the place of occurrence of the external cause; R22.1 Localized swelling, mass and lump, neck; L02.416 Cutaneous abscess of left lower limb; Z59.00 Homelessness unspecified
CPT/HCPCS: 36415; 71045; 76536; 80053; 80074; 80202; 80305; 82948; 83036; 83605; 83735; 84132; 84145; 85007; 85025; 85610; 86703; 87040; 87070; 87075; 87077; 87081; 87102; 87186; 93005; 93306; 99285; A4618; A6213; A6253; A6258; A6446; A6449; A7000; G0378; J0690; J1100; J1650; J1885; J2250; J2270; J2405; J2543; J2704; J3010; J3370; J3490; J7030; J7040; J7120

== ENCOUNTER 2024-08-19 18:52 | Emergency (ER) | payer MEDICAID, OTHER ==
[~2024-08-19] VITALS: Ht 162.6 cm; Wt 77.3 kg
[~2024-08-19 18:52] MED LIST: LINE600T14 PO
[2024-08-19 18:53] VITALS: BP 137/71; PULSE 103; RESP 18; TEMP 98; O2SAT 98
[2024-08-19] MEDS: acetaminophen 325mg tablet PO ONE (21:06)
[2024-08-20] MEDS ORDERED: CEPH-585 PO (02:25)
== END 2024-08-19 23:11 | disposition home or self-care (01) ==
LOC: ER 18:52
DX: B34.9 Viral infection, unspecified (principal); Z20.822 Contact with and (suspected) exposure to COVID-19
CPT/HCPCS: 36415; 87502; 87503; 87811; 99283

== ENCOUNTER 2024-08-20 02:07 | Emergency (ER) | payer OTHER ==
[~2024-08-20] VITALS: Ht 162.6 cm; Wt 72.3 kg
[2024-08-20 02:09] VITALS: TEMP 98.4
[2024-08-20 02:20] VITALS: BP 151/92; PULSE 91; RESP 20; O2SAT 99
[2024-08-20] MEDS ORDERED: CEPH-585 PO (02:25)
[2024-08-20] MEDS: acetaminophen 325mg tablet PO ONE (02:33)
[2024-08-20] MEDS: cephalexin 250mg capsule PO ONE (02:36)
== END 2024-08-20 02:41 | disposition home or self-care (01) ==
LOC: ER 02:08
DX: L03.115 Cellulitis of right lower limb (principal); L03.116 Cellulitis of left lower limb; Z79.2 Long term (current) use of antibiotics; Z59.00 Homelessness unspecified
CPT/HCPCS: 99283